=== PATIENT | male | born 1970 | race Caucasian/White ===

== ENCOUNTER 2022-11-20 05:03 | Inpatient (IN) ==
[2022-11-20] MEDS ORDERED: IOPAMIDOL 100 ML BOTTLE IV ONE (05:04)
[2022-11-20] MEDS ORDERED: IPRATROPIUM/ALBUTEROL 3 ML AMPUL.NEB NEB ONE ×2 (05:16→06:02)
[2022-11-20] MEDS ORDERED: 0.9 % SODIUM CHLORIDE 1,000 ML IV ONE ×2 (05:16→08:07)
[2022-11-20 05:40] LABS: POC Calcium, Ionized 1.1 (1.16-1.32); POC Creatinine 0.9 (0.6-1.2); POC Potassium 3.7 (3.3-5.1)
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
[2022-11-20] MEDS ORDERED: guaiFENesin 600 MG TAB.SR.12H PO ONE (06:02)
[2022-11-20] MEDS ORDERED: AZITHROMYCIN 250 MG TABLET PO ONE (06:02)
[2022-11-20] MEDS ORDERED: cefTRIAXone 2 GM in DEXTROSE 5% IN WATER 50 ML IV ONE (06:12)
[2022-11-20 06:49] LABS: Basophils # (Auto) 0.06 K/mcL (0.00-0.30); Basophils % (Auto) 0.4 % (0.0-2.0); Eosinophils # (Auto) 0.04 K/mcL (0.00-0.70); Eosinophils % (Auto) 0.2 % (0.0-7.0); Hematocrit 44.2 % (40.1-51.0); Hemoglobin 15.2 g/dL (13.7-17.5); Lymphocytes # (Auto) 1.73 K/mcL (1.50-4.80); Lymphocytes % (Auto) 10.8 % (15.5-49.0); Mean Cell Volume 87.5 fL (80.0-100.0); Mean Corpuscular HGB Conc 34.4 g/dL (31.0-36.0); Monocytes # (Auto) 1.02 K/mcL (0.10-0.90); Monocytes % (Auto) 6.4 % (1.0-12.0); Platelet Count 490 K/mcL (140-440); RBC 5.05 M/mcL (4.63-6.08); Red Cell Distribution Width 12.5 % (11.5-14.5)
--- NOTE | 2022-11-20 07:40 | Cat Scan Report ---
History: Cough, congestion, feeling ill for the past two weeks TECHNIQUE: Following injection of intravenous nonionic contrast the chest was imaged during the pulmonary arterial phase. Sagittal, coronal and axial MIPS images were created. The radiation exposure was limited using dose reduction technology. FINDINGS: The pulmonary arteries are normal without evidence of emboli. The aorta is normal in caliber and there is no aneurysm or dissection. The heart is normal in size and contour. There is no atherosclerotic disease. There is a patchy distribution of alveolar infiltrates in the basilar segments of both lower lobes. Associated with this is bronchitis with bronchial wall thickening and mucous plugging in some of the peripheral third order bronchi. Mild bronchitis is present in the right middle lobe and right upper lobe. There is no evidence of a lung mass. No pleural effusion is present. There are several reactive lymph nodes in the mediastinum. The largest is in the subcarinal space and measures 1.6 x 2.5 cm. IMPRESSION: Moderate bibasilar pneumonia No evidence of pulmonary emboli Interpreted and Authenticated by: Peter Irwin 11/20/22
--- NOTE | 2022-11-20 07:42 | XRay Report ---
HISTORY: Cough, congestion, feeling ill for the past two weeks FINDINGS: There are mild alveolar infiltrates in both lung bases. Greatest involvement is in the left lower lobe. Lung volumes are normal. There is no pleural effusion. The heart size is normal. No adenopathy is detected. Comparison with the prior x-ray done on 08/29/21 shows the peripheral/subpleural infiltrates previously seen in both lower lobes have resolved. The new infiltrates in the medial portions of both lower lobes are new. IMPRESSION: Bibasilar pneumonia Interpreted and Authenticated by: Peter Irwin 11/20/22
[2022-11-20] MEDS ORDERED: HALOPERIDOL LACTATE 5 MG/ML VIAL IM PRN (08:05)
[2022-11-20] MEDS ORDERED: LORazepam 2 MG/ML VIAL IV PRN (08:05)
[2022-11-20] MEDS ORDERED: MAGNESIUM HYDROXIDE 30 ML ORAL.SUSP PO PRN (08:08)
[2022-11-20] MEDS ORDERED: oxyCODONE HCL 5 MG TABLET PO PRN (08:08)
[2022-11-20] MEDS ORDERED: BISACODYL 10 MG SUPP.RECT PR PRN (08:08)
[2022-11-20] MEDS ORDERED: HYDROmorphone 0.5 MG/0.5 ML SYRINGE IV PRN (08:08)
[2022-11-20] MEDS ORDERED: NITROGLYCERIN 0.4 MG TAB.SUBL SL PRN (08:08)
[2022-11-20] MEDS ORDERED: ONDANSETRON 4 MG/2 ML VIAL IV PRN (08:08)
[2022-11-20] MEDS ORDERED: NALOXONE HCL 0.4 MG/ML VIAL IV PRN (08:08)
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
[2022-11-20 08:22] LABS: Alcohol, Blood < 10.0 mg/dL; Alcohol,Blood < 0.010 gm/dL (<0.010)
[2022-11-20] MEDS: 0.9 % SODIUM CHLORIDE 1,000 ML IV SCH ×4 (10:22→21:02)
[2022-11-20] MEDS: ACETAMINOPHEN 325 MG TABLET PO PRN ×3 (11:39→22:22)
[2022-11-20] MEDS: ENOXAPARIN 40 MG/0.4 ML SYRINGE SQ SCH (11:39)
[2022-11-20] MEDS: MULTIVIT,THER IRON,CA,FA & MIN 1 TABLET PO SCH (11:40)
[2022-11-20] MEDS: DEXAMETHASONE 4 MG TABLET PO SCH (11:40)
[2022-11-20] MEDS: THIAMINE 100 MG TABLET PO SCH (11:40)
[2022-11-20] MEDS: FOLIC ACID 1 MG TABLET PO SCH (11:40)
[2022-11-20] MEDS: DOCUSATE SODIUM 100 MG CAPSULE PO SCH ×3 (11:40→21:09)
[2022-11-20] MEDS: 0.9 % SODIUM CHLORIDE 10 ML SYRINGE IV SCH ×2 (13:41→21:02)
[2022-11-20] MEDS: IPRATROPIUM/ALBUTEROL 3 ML AMPUL.NEB NEB SCH ×2 (14:05→19:58)
[2022-11-20] MEDS: traZODone HCL 50 MG TABLET PO PRN (21:05)
[2022-11-20] MEDS: SENNOSIDES 1 TABLET PO SCH ×2 (21:05→21:10)
[2022-11-20] MEDS ORDERED: DEXTROSE 31 GM ORAL.SUSP PO PRN (21:31)
[2022-11-20] MEDS ORDERED: DEXTROSE 50% 50 ML VIAL IV PRN (21:31)
[2022-11-20] MEDS ORDERED: INSULIN LISPRO 1 UNIT/0.01 ML UNIT SQ ONE (22:15)
[2022-11-20] MEDS: INSULIN LISPRO 1 UNIT/0.01 ML UNIT SQ SCH (22:21)
[2022-11-21] MEDS: IPRATROPIUM/ALBUTEROL 3 ML AMPUL.NEB NEB SCH ×4 (01:16→19:27)
[2022-11-21] MEDS: 0.9 % SODIUM CHLORIDE 1,000 ML IV SCH ×2 (06:46→18:57)
[2022-11-21] MEDS: 0.9 % SODIUM CHLORIDE 10 ML SYRINGE IV SCH ×3 (06:47→20:29)
[2022-11-21] MEDS: INSULIN LISPRO 1 UNIT/0.01 ML UNIT SQ SCH ×4 (08:02→20:43)
[2022-11-21] MEDS: cefTRIAXone 2 GM in DEXTROSE 5% IN WATER 50 ML IV SCH (08:49)
[2022-11-21] MEDS: THIAMINE 100 MG TABLET PO SCH (08:50)
[2022-11-21] MEDS: FOLIC ACID 1 MG TABLET PO SCH (08:50)
[2022-11-21] MEDS: DEXAMETHASONE 4 MG TABLET PO SCH (08:50)
[2022-11-21] MEDS: MULTIVIT,THER IRON,CA,FA & MIN 1 TABLET PO SCH (08:50)
[2022-11-21] MEDS: ENOXAPARIN 40 MG/0.4 ML SYRINGE SQ SCH (08:50)
[2022-11-21] MEDS: DOCUSATE SODIUM 100 MG CAPSULE PO SCH ×2 (08:58→20:43)
[2022-11-21] MEDS ORDERED: FLU VACC QS2022-23(6MOS UP)/PF 60 MCG/0.5 ML SYRINGE IM ONE (10:00)
[2022-11-21] MEDS: ACETAMINOPHEN 325 MG TABLET PO PRN ×2 (10:15→20:42)
[2022-11-21] MEDS: AZITHROMYCIN 500 MG in DEXTROSE 5% IN WATER 250 ML IV SCH (10:15)
--- NOTE | 2022-11-21 15:06 | Internal Med Progress Note ---
SUBJECTIVE Subjective Patient information: Note initiated : 11/21/22 at 3:06 pm Service Date, if different from initiated Date: [] Patient: Jensen Velez 51 y/o M admitted on 11/20/22 for chest head congestion: COVID, pneumonia. Chief Complaint: [] Interval history: Patient seen and examined, breathing is somewhat better however still has short ness of breath and cough. Still on 2 to 3 L of oxygen. Patient denies chest tightness or chest pain, denies any abdominal symptoms Did have some wheezing on exam today Pertinent ROS: Denies headache, dizziness Denies chest pain, palpitations prseent cough and shortness of breath Denies abdominal pain, nausea or vomiting. Constitutional Vitals: Vital Signs Temp Pulse Resp BP Pulse Ox O2 Del Method O2 Flow Rate 98.5 F 101 H 20 117/71 95 2 11/21/22 11:24 11/21/22 13:07 11/21/22 13:07 11/21/22 11:24 11/21/22 13:07 11/21/22 13:07 11/21/22 13:07 Period Temp Pulse Resp BP Sys/Zendejas Pulse Ox O2 Del Method O2 Flow Rate Last 24 Hr 97.1 F-98.5 F 79-103 - 107-125/59-81 91-99 Nasal Cannula- Nasal Cannula 1.5-2.5 Intake and Output 11/21/22 11/21/22 11/21/22 03:59 11:59 19:59 Intake Total 1140 1273 720 Output Total 1000 575 Balance 140 698 720 Weight 94.483 kg Patient Weight 11/22/22 03:59 Weight 94.483 kg Intake & Output: Intake & Output 11/21/22 11/21/22 11/21/22 03:59 11:59 19:59 Intake Total 1140 1273 720 Output Total 1000 575 Balance 140 698 720 Weight 94.483 kg Intake: IV 940 1273 Sodium Chloride 0.9% 1,000 ml @ 940 973 100 mls/hr IV .Q10H [facility] Rx#: [id number] Zithromax 500 mg In Dextrose 5% 250 in Water 250 ml @ 250 mls/hr IV Q24H [facility] Rx#:[id number] Rocephin 2 gm In Dextrose 5% in 50 Water 50 ml @ 100 mls/hr IV Q24H [facility] Rx#:[id number] Oral 200 720 Output: Void Amount 1000 575 Other: Meal Lunch Percent of Meal Consumed 100% Feeding Ability Independent Urine Appearance Clear Clear Urine Color Yellow Yellow Exam: Constitutional; Afebrile, cooperative, alert, not in distress. Eyes- No icterus, , No periorbital swelling Ears- Ext ear normal, hearing normal to conversation. Neck- Midline trachea, supple Respiratory system: Air Entry equal on both sides, boby wheeze present, decreased air entry CVS- Rate rhythm regular, S1,S2 heard, no gallop, no rub. Abdomen- Soft nontender abdomen, no organomegaly, no tenderness, no guarding or rigidity, REAR ADMIRAL- AOOx3, moving all extremities, no gross focal deficit noted. OBJ DATA Labs CBC & Chem 7: 11/20/22 06:03 Labs: Abnormal Lab Results 11/20/22 11/20/22 11/20/22 14:15 09:09 06:46 WBC Plt Count Immature Gran % (Auto) Neut % (Auto) Lymph % (Auto) [place] # (Auto) Immature Gran # Absolute Neutrophils POC VBG pH 7.31 L POC VBG pCO2 at Temp POC VBG pO2 21 L POC VBG HCO3 22.9 L POC VBG Total CO2 24.0 L POC Venous O2 Sat 30.0 L POC VBG Base Excess -3.0 L VBG Lactic Acid 3.8 H POC Glucose POC WB Ioniz Calcium Mycoplasma pneumon IgM Positive A Ur Strep pneumoniae Ag Positive A 11/20/22 11/20/22 11/20/22 06:03 05:38 05:35 WBC 16.0 H Plt Count 490 H Immature Gran % (Auto) 1.2 H Neut % (Auto) 81.0 H Lymph % (Auto) 10.8 L [place] # (Auto) 1.02 H Immature Gran # 0.20 H Absolute Neutrophils 12.99 H POC VBG pH 7.45 H POC VBG pCO2 at Temp 30.6 L POC VBG pO2 45 H POC VBG HCO3 21.2 L POC VBG Total CO2 22.0 L POC Venous O2 Sat 83.0 H POC VBG Base Excess -3.0 L VBG Lactic Acid 2.5 H POC Glucose 192 H POC WB Ioniz Calcium 1.10 L Mycoplasma pneumon IgM Ur Strep pneumoniae Ag Meds: Medications Acetaminophen (Acetaminophen 325 Mg Tablet) 650 mg PO Q6HP PRN; Protocol PRN Reason: Per Pain Protocol/Fever > 101 Last Admin: 11/21/22 10:15 Dose: 650 mg Albuterol/Ipratropium (Ipratropium/Albuterol 3 Ml Ampul.Neb) 3 ml NEB Q6HRT [facility] Last Admin: 11/21/22 13:06 Dose: 3 ml Bisacodyl (Bisacodyl 10 Mg Supp.Rect) 10 mg [place] Q2-3DAYS PRN PRN Reason: Constipation Dexamethasone (Dexamethasone 4 Mg Tablet) 6 mg PO DAILY [facility] Last Admin: 11/21/22 08:50 Dose: 6 mg Dextrose (Dextrose 50% 50 Ml Vial) 0 ml IV UD PRN PRN Reason: Per Sliding Scale Diagnostic Test (Pha) (Accu-Chek 1 Each Strip) 1 each FS ACHS [facility] Last Admin: 11/21/22 11:21 Dose: 1 each Docusate Sodium (Docusate Sodium 100 Mg Capsule) 100 mg PO BID [facility] Last Admin: 11/21/22 08:58 Dose: Not Given Enoxaparin Sodium (Enoxaparin 40 Mg/0.4 Ml Syringe) 40 mg SQ DAILY [facility] Last Admin: 11/21/22 08:50 Dose: 40 mg Folic Acid (Folic Acid 1 Mg Tablet) 1 mg PO DAILY [facility] Last Admin: 11/21/22 08:50 Dose: 1 mg Glucose (Dextrose 31 Gm Oral.Susp) 15 gm PO PRN PRN PRN Reason: Hypoglycemia Hydromorphone HCl (Hydromorphone 0.5 Mg/0.5 Ml Syringe) 0.5 mg IV Q2HP PRN; Protocol PRN Reason: Per Pain Protocol Sodium Chloride (Sodium Chloride 0.9%) 1,000 mls @ 100 mls/hr IV .Q10H [facility] Last Admin: 11/21/22 06:46 Dose: 100 mls/hr Ceftriaxone Sodium 2 gm/ (Dextrose) 50 mls @ 100 mls/hr IV Q24H [facility]; Protocol Last Infusion: 11/21/22 10:29 Dose: Infused Azithromycin 500 mg/ Dextrose 250 mls @ 250 mls/hr IV Q24H [facility]; Protocol Stop: 11/22/22 10:59 Last Infusion: 11/21/22 11:22 Dose: Infused Insulin Human Lispro (Insulin Lispro 1 Unit/0.01 Ml Unit) 0 unit SQ ACHS [facility]; Protocol Last Admin: 11/21/22 11:57 Dose: 2 unit Iron Carb/Multivit/[place]/Folic Acid (Multivit,Ther Iron,Ca,Fa & Min 1 Tablet) 1 tab PO DAILY [facility] Last Admin: 11/21/22 08:50 Dose: 1 tab Lorazepam (Lorazepam 2 Mg/Ml Vial) 0 mg IV UD PRN; Protocol PRN Reason: Alcohol Withdrawal/Assess CIWA Magnesium Hydroxide (Magnesium Hydroxide 30 Ml Oral.Susp) 30 ml PO DAILYP PRN PRN Reason: Constipation Naloxone HCl (Naloxone Hcl 0.4 Mg/Ml Vial) 0.1 mg IV Q2MIN PRN PRN Reason: Opiate Reversal Nitroglycerin (Nitroglycerin 0.4 Mg Tab.Subl) 0.4 mg SL Q5M PRN PRN Reason: Chest Pain Ondansetron HCl (Ondansetron 4 Mg/2 Ml Vial) 4 mg IV Q6HP PRN PRN Reason: Nausea And Vomiting Oxycodone HCl (Oxycodone Hcl 5 Mg Tablet) 5 mg PO Q4HP PRN; Protocol PRN Reason: Per Pain Protocol Senna (Sennosides 1 Tablet) 2 tab PO HS [facility] Last Admin: 11/20/22 21:10 Dose: Not Given Sodium Chloride (0.9 % Sodium Chloride 10 Ml Syringe) 10 ml IV Q8 [facility] Last Admin: 11/21/22 14:14 Dose: Not Given Thiamine HCl (Thiamine 100 Mg Tablet) 100 mg PO QDAY [facility] Last Admin: 11/21/22 08:50 Dose: 100 mg Trazodone HCl (Trazodone Hcl 50 Mg Tablet) 50 mg PO HSP PRN PRN Reason: Insomnia Last Admin: 11/20/22 21:05 Dose: 50 mg A/P Narrative A/P Narrative: A/P Acute hypoxic Respiratory Failure Bibasilar Pneumonia COVID positive -start on po dexamethasone, duonebs, not candidate for remdesivir given symptoms of 2 weeks. -IV rocehin and zithromax -send sputum cultures, nasal mrsa, urine leginonella, strep and mycoplasma -mycoplasma and strep urine antigen are positive, -transition to oral abx and wean down oxygen as tolerated Reactive Airway disease -on duonebs q6rhs, and dexamethasone, -will add budesonide nebs bid Alcohol abuse -h/o withdrawals per patient -[facility] protocol -Thiamine/folate/multivitamin -IV ativan prn withdrawal Time Spent With Patient Time: Total time spent is greater than 50% in coordination of care (as documented) at patient's floor/unit and/or counseling patient: QUALITY VTE Deep Vein Thrombosis/Pulmonary Embolism Present on Admission: No
[2022-11-21] MEDS: BUDESONIDE 0.5 MG/2 ML AMPUL.NEB NEB SCH (19:27)
[2022-11-21] MEDS: SENNOSIDES 1 TABLET PO SCH (20:29)
[2022-11-21] MEDS: traZODone HCL 50 MG TABLET PO PRN (20:43)
[2022-11-22] MEDS: IPRATROPIUM/ALBUTEROL 3 ML AMPUL.NEB NEB SCH ×4 (01:37→19:15)
[2022-11-22] MEDS: 0.9 % SODIUM CHLORIDE 1,000 ML IV SCH ×4 (01:51→17:38)
[2022-11-22] MEDS: 0.9 % SODIUM CHLORIDE 10 ML SYRINGE IV SCH ×3 (04:46→21:11)
[2022-11-22] MEDS: BUDESONIDE 0.5 MG/2 ML AMPUL.NEB NEB SCH ×2 (08:30→19:15)
[2022-11-22] MEDS: cefTRIAXone 2 GM in DEXTROSE 5% IN WATER 50 ML IV SCH (08:40)
[2022-11-22] MEDS: INSULIN LISPRO 1 UNIT/0.01 ML UNIT SQ SCH ×4 (08:47→21:11)
[2022-11-22] MEDS: DOCUSATE SODIUM 100 MG CAPSULE PO SCH ×2 (10:36→21:11)
[2022-11-22] MEDS: THIAMINE 100 MG TABLET PO SCH (10:36)
[2022-11-22] MEDS: MULTIVIT,THER IRON,CA,FA & MIN 1 TABLET PO SCH (10:36)
[2022-11-22] MEDS: DEXAMETHASONE 4 MG TABLET PO SCH (10:37)
[2022-11-22] MEDS: FOLIC ACID 1 MG TABLET PO SCH (10:37)
[2022-11-22] MEDS: ENOXAPARIN 40 MG/0.4 ML SYRINGE SQ SCH (10:38)
[2022-11-22] MEDS: AZITHROMYCIN 500 MG in DEXTROSE 5% IN WATER 250 ML IV SCH (10:40)
--- NOTE | 2022-11-22 11:45 | Internal Med Progress Note ---
SUBJECTIVE Subjective Patient information: Note initiated : 11/22/22 at 11:42 am Service Date, if different from initiated Date: [] Patient: Jensen Velez 51 y/o M admitted on 11/20/22 for chest head congestion: COVID, pneumonia. Chief Complaint: [] Interval history: Patient seen and examined, breathing continues to improve, no new complaints or concerns, responding to present treatment remains on oxygen, but on 2L now Pertinent ROS: Denies headache, dizziness Denies chest pain, palpitations improving cough and shortness of breath Denies abdominal pain, nausea or vomiting. Constitutional Vitals: Vital Signs Temp Pulse Resp BP Pulse Ox O2 Del Method O2 Flow Rate 98.6 F 87 20 129/76 94 2 11/22/22 07:33 11/22/22 07:33 11/22/22 08:45 11/22/22 07:33 11/22/22 08:45 11/22/22 08:45 11/22/22 08:45 Period Temp Pulse Resp BP Sys/Zendejas Pulse Ox O2 Del Method O2 Flow Rate Last 24 Hr 98.4 F-99.2 F 82-101 16-20 124-137/73-89 94-97 Nasal Cannula- Nasal Cannula 2-3 Intake and Output 11/21/22 11/22/22 11/22/22 19:59 03:59 11:59 Intake Total 2320 2632 Output Total 625 1275 1225 Balance 1695 -1275 1407 Weight 97.704 kg Intake & Output: Intake & Output 11/21/22 11/22/22 11/22/22 19:59 03:59 11:59 Intake Total 2320 2632 Output Total 625 1275 1225 Balance 1695 -1275 1407 Weight 97.704 kg Intake: IV 1000 1032 Sodium Chloride 0.9% 1,000 ml @ 1000 982 100 mls/hr IV .Q10H [facility] Rx#: [id number] Rocephin 2 gm In Dextrose 5% in 50 Water 50 ml @ 100 mls/hr IV Q24H [facility] Rx#:[id number] Oral 1320 1600 Output: Void Amount 625 1275 1225 Other: Meal Dinner Breakfast Percent of Meal Consumed 100% 100% Feeding Ability Independent Independent Urine Appearance Clear Clear Clear Urine Color Yellow Yellow Yellow Pale Stool Size Large # Bowel Movements 1 Exam: Constitutional; Afebrile, cooperative, alert, not in distress. Eyes- No icterus, , No periorbital swelling Ears- Ext ear normal, hearing normal to conversation. Neck- Midline trachea, supple Respiratory system: Air Entry equal on both sides, boby wheeze present, air entry and wheeze improved today CVS- Rate rhythm regular, S1,S2 heard, no gallop, no rub. Abdomen- Soft nontender abdomen, no organomegaly, no tenderness, no guarding or rigidity, FILM COATER- AOOx3, moving all extremities, no gross focal deficit noted. OBJ DATA Labs CBC & Chem 7: 11/20/22 06:03 Labs: Abnormal Lab Results 11/20/22 11/20/22 11/20/22 14:15 09:09 06:46 WBC Plt Count Immature Gran % (Auto) Neut % (Auto) Lymph % (Auto) [place] # (Auto) Immature Gran # Absolute Neutrophils POC VBG pH 7.31 L POC VBG pCO2 at Temp POC VBG pO2 21 L POC VBG HCO3 22.9 L POC VBG Total CO2 24.0 L POC Venous O2 Sat 30.0 L POC VBG Base Excess -3.0 L VBG Lactic Acid 3.8 H POC Glucose POC WB Ioniz Calcium Mycoplasma pneumon IgM Positive A Ur Strep pneumoniae Ag Positive A 11/20/22 11/20/22 11/20/22 06:03 05:38 05:35 WBC 16.0 H Plt Count 490 H Immature Gran % (Auto) 1.2 H Neut % (Auto) 81.0 H Lymph % (Auto) 10.8 L [place] # (Auto) 1.02 H Immature Gran # 0.20 H Absolute Neutrophils 12.99 H POC VBG pH 7.45 H POC VBG pCO2 at Temp 30.6 L POC VBG pO2 45 H POC VBG HCO3 21.2 L POC VBG Total CO2 22.0 L POC Venous O2 Sat 83.0 H POC VBG Base Excess -3.0 L VBG Lactic Acid 2.5 H POC Glucose 192 H POC WB Ioniz Calcium 1.10 L Mycoplasma pneumon IgM Ur Strep pneumoniae Ag Meds: Medications Acetaminophen (Acetaminophen 325 Mg Tablet) 650 mg PO Q6HP PRN; Protocol PRN Reason: Per Pain Protocol/Fever > 101 Last Admin: 11/21/22 20:42 Dose: 650 mg Albuterol/Ipratropium (Ipratropium/Albuterol 3 Ml Ampul.Neb) 3 ml NEB Q6HRT [facility] Last Admin: 11/22/22 08:30 Dose: 3 ml Bisacodyl (Bisacodyl 10 Mg Supp.Rect) 10 mg [place] Q2-3DAYS PRN PRN Reason: Constipation Budesonide (Budesonide 0.5 Mg/2 Ml Ampul.Neb) 0.5 mg NEB Q12 [facility] Last Admin: 11/22/22 08:30 Dose: 0.5 mg Dexamethasone (Dexamethasone 4 Mg Tablet) 6 mg PO DAILY [facility] Last Admin: 11/22/22 10:37 Dose: 6 mg Dextrose (Dextrose 50% 50 Ml Vial) 0 ml IV UD PRN PRN Reason: Per Sliding Scale Diagnostic Test (Pha) (Accu-Chek 1 Each Strip) 1 each FS ACHS [facility] Last Admin: 11/22/22 08:44 Dose: 1 each Docusate Sodium (Docusate Sodium 100 Mg Capsule) 100 mg PO BID [facility] Last Admin: 11/22/22 10:36 Dose: 100 mg Enoxaparin Sodium (Enoxaparin 40 Mg/0.4 Ml Syringe) 40 mg SQ DAILY [facility] Last Admin: 11/22/22 10:38 Dose: 40 mg Folic Acid (Folic Acid 1 Mg Tablet) 1 mg PO DAILY [facility] Last Admin: 11/22/22 10:37 Dose: 1 mg Glucose (Dextrose 31 Gm Oral.Susp) 15 gm PO PRN PRN PRN Reason: Hypoglycemia Hydromorphone HCl (Hydromorphone 0.5 Mg/0.5 Ml Syringe) 0.5 mg IV Q2HP PRN; Protocol PRN Reason: Per Pain Protocol Sodium Chloride (Sodium Chloride 0.9%) 1,000 mls @ 100 mls/hr IV .Q10H [facility] Last Admin: 11/22/22 10:40 Dose: Not Given Ceftriaxone Sodium 2 gm/ (Dextrose) 50 mls @ 100 mls/hr IV Q24H [facility]; Protocol Last Infusion: 11/22/22 09:10 Dose: Infused Insulin Human Lispro (Insulin Lispro 1 Unit/0.01 Ml Unit) 0 unit SQ ACHS [facility]; Protocol Last Admin: 11/22/22 08:47 Dose: Not Given Iron Carb/Multivit/[place]/Folic Acid (Multivit,Ther Iron,Ca,Fa & Min 1 Tablet) 1 tab PO DAILY [facility] Last Admin: 11/22/22 10:36 Dose: 1 tab Lorazepam (Lorazepam 2 Mg/Ml Vial) 0 mg IV UD PRN; Protocol PRN Reason: Alcohol Withdrawal/Assess CIWA Magnesium Hydroxide (Magnesium Hydroxide 30 Ml Oral.Susp) 30 ml PO DAILYP PRN PRN Reason: Constipation Naloxone HCl (Naloxone Hcl 0.4 Mg/Ml Vial) 0.1 mg IV Q2MIN PRN PRN Reason: Opiate Reversal Nitroglycerin (Nitroglycerin 0.4 Mg Tab.Subl) 0.4 mg SL Q5M PRN PRN Reason: Chest Pain Ondansetron HCl (Ondansetron 4 Mg/2 Ml Vial) 4 mg IV Q6HP PRN PRN Reason: Nausea And Vomiting Oxycodone HCl (Oxycodone Hcl 5 Mg Tablet) 5 mg PO Q4HP PRN; Protocol PRN Reason: Per Pain Protocol Senna (Sennosides 1 Tablet) 2 tab PO HS [facility] Last Admin: 11/21/22 20:29 Dose: Not Given Sodium Chloride (0.9 % Sodium Chloride 10 Ml Syringe) 10 ml IV Q8 [facility] Last Admin: 11/22/22 04:46 Dose: Not Given Thiamine HCl (Thiamine 100 Mg Tablet) 100 mg PO QDAY [facility] Last Admin: 11/22/22 10:36 Dose: 100 mg Trazodone HCl (Trazodone Hcl 50 Mg Tablet) 50 mg PO HSP PRN PRN Reason: Insomnia Last Admin: 11/21/22 20:43 Dose: 50 mg A/P Narrative A/P Narrative: A/P Acute hypoxic Respiratory Failure Bibasilar Pneumonia COVID positive -start on po dexamethasone, duonebs, not candidate for remdesivir given symptoms of 2 weeks. -IV rocehin and zithromax, to continue -send sputum cultures, nasal mrsa, urine leginonella, strep and mycoplasma -mycoplasma and strep urine antigen are positive, -transition to oral abx and wean down oxygen as tolerated Reactive Airway disease -on duonebs q6rhs, and dexamethasone, -will add budesonide nebs bid Alcohol abuse -h/o withdrawals per patient -ciwa protocol, ciwa scores are low -Thiamine/folate/multivitamin -IV ativan prn withdrawal Time Spent With Patient Time: Total time spent is greater than 50% in coordination of care (as documented) at patient's floor/unit and/or counseling patient: QUALITY VTE Deep Vein Thrombosis/Pulmonary Embolism Present on Admission: No
[2022-11-22 13:28] LABS: Basophils # (Auto) 0.04 K/mcL (0.00-0.30); Basophils % (Auto) 0.2 % (0.0-2.0); Eosinophils # (Auto) 0 K/mcL (0.00-0.70); Eosinophils % (Auto) 0 % (0.0-7.0); Hematocrit 37.7 % (40.1-51.0); Hemoglobin 11.9 g/dL (13.7-17.5); Lymphocytes # (Auto) 2.03 K/mcL (1.50-4.80); Lymphocytes % (Auto) 9.3 % (15.5-49.0); Mean Cell Volume 92.2 fL (80.0-100.0); Mean Corpuscular HGB Conc 31.6 g/dL (31.0-36.0); Mean Platelet Volume 8.8 fL (8.8-12.5); Monocytes # (Auto) 1.65 K/mcL (0.10-0.90); Monocytes % (Auto) 7.5 % (1.0-12.0); Neutrophils % (Auto) 81.7 % (38.0-78.0); Platelet Count 506 K/mcL (140-440); RBC 4.09 M/mcL (4.63-6.08); WBC 21.9 K/mcL (4.5-11.0)
[2022-11-22 14:09] LABS: ALT/SGPT 64 U/L (<40); AST/SGOT 39 U/L (<40); Albumin 2.8 gm/dL (3.2-5.2); Albumin/Globulin Ratio 0.7 (1.0-2.3); Alkaline Phosphatase 114 U/L (39-117); Bilirubin,Total < 0.2 mg/dL (0.1-1.0); Blood Urea Nitrogen 11 mg/dL (6-20); Calcium 8.7 mg/dL (8.6-10.4); Carbon Dioxide 21 mmol/L (22-30); Chloride 104 mmol/L (96-108); Globulin 3.8 gm/dL (2.2-3.7); Glomerular Filtration Rate 109; Glucose 91 mg/dL (70-105)
[2022-11-22 20:05] LABS: Legionella pneumophilia Ag, Ur NOT DETECTED
[2022-11-22] MEDS ORDERED: ACETAMINOPHEN 325 MG TABLET PO ONE (21:08)
[2022-11-22] MEDS: SENNOSIDES 1 TABLET PO SCH (21:11)
[2022-11-22] MEDS: ACETAMINOPHEN 325 MG TABLET PO PRN (21:12)
[2022-11-22] MEDS: traZODone HCL 50 MG TABLET PO PRN (21:13)
[2022-11-23] MEDS: 0.9 % SODIUM CHLORIDE 1,000 ML IV SCH ×3 (01:19→08:59)
[2022-11-23] MEDS: IPRATROPIUM/ALBUTEROL 3 ML AMPUL.NEB NEB SCH ×3 (01:39→16:36)
[2022-11-23 06:40] LABS: Basophils # (Auto) 0.03 K/mcL (0.00-0.30); Basophils % (Auto) 0.2 % (0.0-2.0); Eosinophils # (Auto) 0 K/mcL (0.00-0.70); Eosinophils % (Auto) 0 % (0.0-7.0); Hematocrit 36.5 % (40.1-51.0); Hemoglobin 11.8 g/dL (13.7-17.5); Lymphocytes # (Auto) 1.95 K/mcL (1.50-4.80); Lymphocytes % (Auto) 14.5 % (15.5-49.0); Mean Cell Volume 91.3 fL (80.0-100.0); Mean Corpuscular HGB Conc 32.3 g/dL (31.0-36.0); Mean Platelet Volume 8.6 fL (8.8-12.5); Monocytes # (Auto) 0.89 K/mcL (0.10-0.90); Monocytes % (Auto) 6.6 % (1.0-12.0); Neutrophils % (Auto) 77.1 % (38.0-78.0); Platelet Count 483 K/mcL (140-440); WBC 13.5 K/mcL (4.5-11.0)
[2022-11-23 07:07] LABS: ALT/SGPT 61 U/L (<40); AST/SGOT 26 U/L (<40); Albumin 2.9 gm/dL (3.2-5.2); Albumin/Globulin Ratio 0.8 (1.0-2.3); Alkaline Phosphatase 104 U/L (39-117); Bilirubin,Direct < 0.2 mg/dL (0-0.3); Bilirubin,Total 0.2 mg/dL (0.1-1.0); Blood Urea Nitrogen 10 mg/dL (6-20); Calcium 8.8 mg/dL (8.6-10.4); Carbon Dioxide 23 mmol/L (22-30); Chloride 106 mmol/L (96-108); Globulin 3.6 gm/dL (2.2-3.7); Glomerular Filtration Rate 109; Glucose 105 mg/dL (70-105); Lactate Dehydrogenase 183 U/L (135-225); Phosphorous 4.6 mg/dL (2.5-4.5); Triglycerides 57 mg/dL (<150); Uric Acid 5.2 mg/dL (2.5-8.0)
[2022-11-23] MEDS: BUDESONIDE 0.5 MG/2 ML AMPUL.NEB NEB SCH (08:19)
[2022-11-23] MEDS: INSULIN LISPRO 1 UNIT/0.01 ML UNIT SQ SCH ×2 (08:54→12:25)
[2022-11-23] MEDS: ENOXAPARIN 40 MG/0.4 ML SYRINGE SQ SCH (08:54)
[2022-11-23] MEDS: DEXAMETHASONE 4 MG TABLET PO SCH (08:57)
[2022-11-23] MEDS: MULTIVIT,THER IRON,CA,FA & MIN 1 TABLET PO SCH (08:58)
[2022-11-23] MEDS: THIAMINE 100 MG TABLET PO SCH (08:58)
[2022-11-23] MEDS: FOLIC ACID 1 MG TABLET PO SCH (08:58)
[2022-11-23] MEDS: DOCUSATE SODIUM 100 MG CAPSULE PO SCH (08:59)
[2022-11-23] MEDS: 0.9 % SODIUM CHLORIDE 10 ML SYRINGE IV SCH ×2 (08:59→16:36)
[2022-11-23] MEDS: cefTRIAXone 2 GM in DEXTROSE 5% IN WATER 50 ML IV SCH (09:00)
[2022-11-23] MEDS ORDERED: FLU VACC QS2022-23(6MOS UP)/PF 60 MCG/0.5 ML SYRINGE IM ONE (10:00)
--- NOTE | 2022-11-23 11:51 | Discharge Summary ---
Discharge Provider Provider IMPORTANT FOLLOW-UP INFORMATION FOR PCP: Patient information: Note initiated : 11/23/22 at 11:49 am Service Date, if different from initiated Date: [] Patient: Jensen Velez 51 y/o M admitted on 11/20/22 for chest head congestion: COVID, pneumonia. Chief Complaint: [] Date of admission: 11/20/22 09:54 Discharge date: 11/23/22 Primary care physician: PCP No Consults: 11/20/22 Consult to Physician [CONS] Stat Comment: Consulting Provider: Pablito Medeiros Reason For Exam: Physician to Consult COURSE Hospital Course Hospital course: Jensen Velez is a 51-year-old male who was admitted to the hospital for acute hypoxic respiratory failure secondary to community-acquired pneumonia. The patient also was found to have COVID. He says his COVID symptoms had started about 2 weeks prior to admission. The patient was treated with ceftriaxone and IV azithromycin. Sputum culture grew Staph aureus. Nasal MRSA PCR was negative. Urine Streptococcus and mycoplasma antigens positive. Urine Legionella antigen not detected. The patient's hypoxia resolved. He was discharged to home on oral antibiotics. Discharge diagnosis: Community-acquired pneumonia Secondary discharge diagnosis: COVID-19 Time Spent with Patient Time attestation: Total time spent providing and/or coordinating discharge services: Time spent: Less than 30 minutes EXAM Constitutional Vitals: Temp Pulse Resp BP Pulse Ox O2 Del Method O2 Flow Rate 98.8 F 77 18 151/78 95 2.5 11/23/22 08:00 11/23/22 08:21 11/23/22 08:21 11/23/22 08:00 11/23/22 08:21 11/23/22 08:21 11/22/22 19:15 Discharge Data Data Completed and Pending Labs on day of discharge: Labs from last 24 hours 11/23/22 11/23/22 11/22/22 06:01 06:01 12:53 WBC 13.5 H RBC 4.00 L Hgb 11.8 L Hct 36.5 L MCV 91.3 MCH 29.5 MCHC 32.3 RDW 13.0 Plt Count 483 H MPV 8.6 L Immature Gran % (Auto) 1.6 H Neut % (Auto) 77.1 Lymph % (Auto) 14.5 L [place] % (Auto) 6.6 Eos % (Auto) 0 Baso % (Auto) 0.2 Lymph # (Auto) 1.95 [place] # (Auto) 0.89 Eos # (Auto) 0 Baso # (Auto) 0.03 Immature Gran # 0.22 H Absolute Neutrophils 10.36 H Sodium 139 136 Potassium 4.2 4.2 Chloride 106 104 Carbon Dioxide 23 21 L Anion Gap 10.0 11.0 BUN 10 11 Creatinine 0.7 0.7 GFR Calculation 109 109 Glucose 105 91 Uric Acid 5.2 Calcium 8.8 8.7 Phosphorus 4.6 H Magnesium 2.1 Total Bilirubin 0.2 < 0.2 Direct Bilirubin < 0.2 GGT 60 AST 26 39 ALT 61 H 64 H Alkaline Phosphatase 104 114 Lactate Dehydrogenase 183 Total Protein 6.5 6.6 Albumin 2.9 L 2.8 L Globulin 3.6 3.8 H Albumin/Globulin Ratio 0.8 L 0.7 L Triglycerides 57 Ur L.pneumophila Ag 11/22/22 11/20/22 12:53 14:15 WBC 21.9 H RBC 4.09 L Hgb 11.9 L Hct 37.7 L MCV 92.2 MCH 29.1 MCHC 31.6 RDW 13.0 Plt Count 506 H MPV 8.8 Immature Gran % (Auto) 1.3 H Neut % (Auto) 81.7 H Lymph % (Auto) 9.3 L [place] % (Auto) 7.5 Eos % (Auto) 0 Baso % (Auto) 0.2 Lymph # (Auto) 2.03 [place] # (Auto) 1.65 H Eos # (Auto) 0 Baso # (Auto) 0.04 Immature Gran # 0.29 H Absolute Neutrophils 17.90 H Sodium Potassium Chloride Carbon Dioxide Anion Gap BUN Creatinine GFR Calculation Glucose Uric Acid Calcium Phosphorus Magnesium Total Bilirubin Direct Bilirubin GGT AST ALT Alkaline Phosphatase Lactate Dehydrogenase Total Protein Albumin Globulin Albumin/Globulin Ratio Triglycerides Ur L.pneumophila Ag Not detected Preliminary micro results at discharge 11/20/22 08:31 Blood Culture - Preliminary Blood 11/20/22 08:24 Blood Culture - Preliminary Blood 11/20/22 08:48 Gram Stain - Preliminary Sputum source - Expectorated Sputum Culture - Preliminary Staphylococcus aureus Discharge Plan Patient/Caregiver Discharge Instructions Activity: increase activity as tolerated Diet: Regular Diet Prescriptions: New trazodone 50 mg Tablet 50 mg PO HSP PRN (Reason: Insomnia) Qty: 30 0RF cefuroxime axetil 500 mg tablet 500 mg PO BID 5 Days Qty: 10 0RF albuterol sulfate 90 mcg/actuation HFA aerosol inhaler 2 puff inhalation Q6H PRN (Reason: shortness of breath or wheezing) Qty: 8.5 3RF dexamethasone 6 mg tablet 6 mg PO QDAY 7 Days Qty: 7 0RF Follow Up Plan Follow up with: No,PCP [Primary Care Provider] - Patient Disposition: Home, Self-Care Prognosis: Fair Overall status at discharge: patient is progressing back to baseline Discharge Orders: Discharge Order (Routine); Ordered 11/23/22 Ordered By: Stephon TINSLEY VTE Deep Vein Thrombosis/Pulmonary Embolism Present on Admission: No
== END 2022-11-23 15:27 | disposition home or self-care (01) | DRG 193 ==
LOC: ED 05:03 → MEDSUR 09:54
PROVIDERS: ADMIT Internal Medicine; ATTEND Internal Medicine